=== PATIENT | male | born 1960 | race Caucasian/White ===

== ENCOUNTER 2020-05-27 13:21 | Inpatient (IN) ==
[2020-05-27] MEDS ORDERED: methylPREDNISolone SOD SUCC 125 MG/2 ML VIAL IV ONE (13:47)
[2020-05-27] MEDS ORDERED: 0.9 % SODIUM CHLORIDE 1,000 ML IV ONE (13:47)
[2020-05-27] MEDS ORDERED: ALBUTEROL SULFATE 200 PUFF INHALER INH ONE (13:47)
[2020-05-27] MEDS ORDERED: ONDANSETRON 4 MG/2 ML VIAL IV ONE (13:47)
[2020-05-27] MEDS ORDERED: ACETAMINOPHEN 325 MG TABLET PO ONE (13:47)
[2020-05-27] MEDS ORDERED: BENZONATATE 100 MG CAPSULE PO ONE (13:47)
--- NOTE | 2020-05-27 13:55 | Emergency Department Note ---
HPI General Chief complaint: Cold/Flu Symptoms Stated complaint: SOB, Weakness, General Malaise Time Seen by Provider: 05/27/20 13:26 Source: patient Mode of arrival: ambulatory Limitations: no limitations History of Present Illness HPI Narrative: Narrative: 60-year-old male patient, who is known COVID positive, presents emergency department chief complaint of worsening productive cough, generalized malaise, nausea, diarrhea, and fevers. Patient's is known COVID positive as well and he has been taking care of her. He was recently diagnosed with COVID on 05/21 in the [facility]. He was treated with course of azithromycin and sent home to recuperate. Unfortunately he has developed the prior mentioned worsening symptoms. Patient does have considerable comorbidities of CHF, type 2 diabetes, obesity, and hypertension which are all related to poor outcomes with someone who is suffering from COVID. Patient admits to scant amount of hemoptysis with coughing over the last 2 days. Patient denies overt retrosternal chest pain or palpitations. However, patient did mention pain extending between his shoulder blades. This worsens with deep breathing or cough. He denies any worsening lower extremity edema. He denies any orthopnea. ROS: Admits to systemic illness, fever, sweats, chills. Denies abdominal pain, nausea, vomiting, or diarrhea. Denies dysuria, hematuria, urinary frequency, or urinary urgency. Related Data Home Medications Medication Instructions Recorded Confirmed losartan 100 mg tablet 100 mg PO QDAY 10/27/16 05/21/20 Previous Rx's Medication Instructions Recorded fluticasone propionate 50 1 spray INTRANASAL QDAY #16 g 02/27/20 mcg/actuation nasal spray,suspension metformin 500 mg tablet 1,000 mg PO BID #180 tab 02/27/20 amlodipine 10 mg tablet 10 mg PO HS #90 tab 03/04/20 carvedilol 25 mg tablet 12.5 mg PO BID #90 tab 03/04/20 potassium chloride 20 mEq 20 meq PO QDAY #90 tab 03/05/20 tablet,extended release blood sugar diagnostic #100 each 03/30/20 furosemide 40 mg tablet 40 mg PO QDAY #90 tab 04/06/20 insulin glargine 100 unit/mL (3 40 unit SUB-Q QDAY #15 ml 04/29/20 mL) subcutaneous pen albuterol sulfate 90 mcg/actuation 2 puff INHALATION .q4-6h PRN #8.5 g 05/21/20 aerosol inhaler azithromycin 250 mg tablet See Rx Instructions PO Q24H #6 tab 05/21/20 BD Ultra-Fine Aliya Pen Needle 32 See Rx Instructions .ROUTE 05/25/20 gauge x 5/32" .COMPLEX #90 each NS fluticasone 100 mcg-salmeterol 50 1 inh INHALATION BID #3 device 05/25/20 mcg/dose blistr powdr for inhalation blood sugar diagnostic See Rx Instructions .ROUTE 05/26/20 .COMPLEX #180 strip lancets #180 each 05/26/20 Allergies Allergy/AdvReac Type Severity Reaction Status Date / Time aspirin AdvReac Mild Nausea and Verified 05/21/20 09:27 vomiting, swelling Review of Systems ROS ROS Narrative: Narrative: PFSH Narrative Patient History Narrative: Narrative: Medical/Surgical/Family History All Active Problems Pneumonia due to COVID-19 virus (Acute) Hypoxia (Acute) Viral syndrome (Acute) Chest congestion (Acute) Right knee pain (Acute) Bicipital tendinitis (Chronic) Umbilical hernia (Acute) Umbilical hernia, incarcerated (Acute) CHF (congestive heart failure) (Chronic) Type 2 diabetes mellitus (Chronic) Pain in thoracic spine (Chronic) Chest pain (Chronic) Heart murmur (Chronic) Shortness of breath (Chronic) Fatigue (Chronic) Abnormal glucose (Chronic) Ascending aortic aneurysm (Chronic) Healthcare maintenance (Chronic) Prediabetes (Chronic) Dilated idiopathic cardiomyopathy (Chronic) History of tobacco use (Chronic) Liver enzyme elevation (Chronic) Hypertension, essential (Chronic ~1989) Heart trouble (Chronic ~2011) Arthritis (Chronic ~2011) Medical History Abnormal glucose (Chronic) Arthritis (Chronic ~2011) Ascending aortic aneurysm (Chronic) Chest congestion (Acute) Chest pain (Chronic) CHF (congestive heart failure) (Chronic) Fatigue (Chronic) Heart murmur (Chronic) Heart trouble (Chronic ~2011) History of tobacco use (Chronic) Hypertension, essential (Chronic ~1989) Liver enzyme elevation (Chronic) Pain in thoracic spine (Chronic) Shortness of breath (Chronic) Type 2 diabetes mellitus (Chronic) Viral syndrome (Acute) Surgical History H/O colonoscopy (Chronic ~1998) Dr. Wilder [place] ([place]) H/O knee surgery (Chronic ~2009) History of appendectomy (Chronic) History of umbilical hernia repair (Acute) 12/07/2016-with mesh Family History Mother Hypertension Father Hypertension Social History Smoking Status: Former smoker Alcohol Intake Frequency: a few times a week Substance Use: former substance user and marijuana Exam Narrative Narrative: Narrative: General Limitations: no limitations General appearance: Present other (Well-developed, well-nourished, morbidly obese, and acutely ill-appearing 60-year-old male patient sitting upright on the emergency room gurney in no acute respiratory distress. He is not tachypneic. He is febrile at 100.2. He is normotensive. No tachycardia.) Head Head: Present normocephalic Eye Eye: Present normal appearance, PERRL and EOMI; Absent scleral icterus and conjunctival injection ENT ENT: Present normal oropharynx and mucous membranes moist Neck Neck: Present trachea midline; Absent lymphadenopathy Chest Chest: Present symmetric chest wall rise Respiratory Respiratory: Present prolonged expiratory phase and decreased breath sounds (Coarse breath sounds heard throughout the chest. No wheezing, rhonchi, or rales.); Absent normal lung sounds bilaterally, respiratory distress, rales/crackles, wheezes, stridor and accessory muscle use Cardiovascular Cardiovascular: Present regular rate and normal rhythm; Absent systolic murmur and diastolic murmur Adbominal Abdominal: Present soft; Absent distention, tenderness, guarding, rebound, rigidity, organomegaly and mass Extremities Extremities: Present full ROM and pedal edema (Trace nonpitting edema through both ankles bilateral.); Absent normal inspection (Bilateral lower extremity bronzing and dry scaly skin noted.), tenderness, normal capillary refill (Less than 3 seconds.) and calf tenderness Back Back: Present normal inspection and full ROM Neurological Neurological: Present alert and oriented X3 Psychiatric Psychiatric: Present normal affect and normal mood Skin Skin: Present warm (WNL), dry and normal color Course Course Course Narrative: Patient has known COVID with worsening symptoms. At this time he is febrile but his other vital signs are within normal range. We are going to get a chest x-ray, EKG, and screening blood work started. Patient was given albuterol 2 puffs via inhaler to help with the shortness of breath. He was given 975 mg of acetaminophen for his fever. Were going to treat his cough with benzonatate 200 mg p.o. Patient was also given Solu-Medrol 62.5 mg IV. Patient somewhat nauseated and was given Zofran 4 mg IVP. He is also going to be provided normal saline 1000 mL as a bolus. Reevaluation(s) Reevaluation #1: Review his diagnostic show the following: CBC within normal limits. Lactic acid 1.6. CMP chloride 94, glucose 178, AST 41, ALT 54, all others within normal limits. Troponin less than 0.01. proBNP less than 50. Procalcitonin is elevated 0.10. Portable chest x-ray showing vague infiltrates developing the perihilar regions. Radiologist mentions borderline CHF. Radiologist also as patient clinically has CHF and they would consider diuretic trial follow-up with a 2 view upright chest x-ray in radiology for better evaluation. ABG reviewed showing pH 7.4, CO2 46, O2 57, bicarb 28.5. Upon reevaluation patient is lying on the emergency room gurney somewhat diaphoretic. A trial without oxygen was made unfortunately patient's SPO2 decreased abruptly to 85% on room air. She was quickly restarted on nasal cannula oxygen at 4 L/min. His SPO2 then increased to 91%. After reviewing the data I discussed these findings with my collaborating physician (Dr. Gonzalez). Patient has known COVID positive with suspected developing pneumonia in his chest. He is hypoxic and requiring oxygen. Dr. Gonzalez is recommending I speak to the hospitalist about admission. Knowing this, I reached out to our hos pitalist (Dr. Vásquez) to discuss the case with him. Time: 16:16 Reevaluation #2: At this time the hospitalist has accepted the patient for admission. All further treatment decisions, modalities, and ultimate patient disposition to be carried out by the hospitalist. Time: 17:57 Vital Signs Vital signs: Vital Signs Temperature 100.2 F H 05/27/20 13:22 Pulse Rate 95 H 05/27/20 13:22 Respiratory Rate 20 05/27/20 13:22 Blood Pressure 127/95 05/27/20 13:22 Pulse Oximetry (%) 90 05/27/20 13:22 Temperature 100.2 F H 05/27/20 18:49 Pulse Rate 82 05/27/20 18:49 Respiratory Rate 22 05/27/20 18:49 Blood Pressure 112/78 05/27/20 18:49 Pulse Oximetry (%) 91 05/27/20 18:49 MDM MDM Narrative Medical decision making narrative: Narrative: Lab Data Lab results reviewed: Yes I reviewed the patient's lab results. Result diagrams: 05/27/20 14:08 05/27/20 14:08 Labs: Lab Results 05/27/20 05/27/20 05/27/20 Range/Units 14:08 14:08 14:08 WBC 5.4 (4.50-11.00) K/mcL RBC 5.65 (4.63-6.08) M/mcL Hgb 17.2 (13.7-17.5) g/dL Hct 50.3 (40.1-51.0) % MCV 89.0 (80.0-100.0) fL MCH 30.4 (26.0-34.0) pg MCHC 34.2 (31.0-36.0) g/dL RDW 13.8 (11.5-14.5) % Plt Count 164 (140-440) K/mcL MPV 10.5 H (7.4-10.4) fL Gran % 55.4 (38.0-78.0) % Lymph % (Auto) 33.6 (15.5-49.0) % Sampson % (Auto) 10.4 (1.0-12.0) % Eos % (Auto) 0.2 (0.0-7.0) % Baso % (Auto) 0.4 (0.0-2.0) % Gran # 2.98 (1.80-8.00) K/mcL Lymph # (Auto) 1.81 (1.50-4.80) K/mcL Sampson # (Auto) 0.56 (0.10-0.90) K/mcL Eos # (Auto) 0.01 (0.00-0.70) K/mcL Baso # (Auto) 0.02 (0.00-0.30) K/mcL VBG Lactic Acid 1.6 (0.5-2.0) mmol/L Sodium 135 (133-145) mmol/L Potassium 4.2 (3.3-5.1) mmol/L Chloride 94 L (96-108) mmol/L Carbon Dioxide 26 (22-30) mmol/L Anion Gap 15.0 (8-16) BUN 13 (6-20) mg/dl Creatinine 0.8 (0.7-1.2) mg/dl GFR Calculation 97 Glucose 178 H (70-105) mg/dL Calcium 8.8 (8.6-10.4) mg/dl Total Bilirubin 0.8 (0.0-1.0) mg/dL AST 41 H (0-37) U/l ALT 54 H (0-40) U/l Alkaline Phosphatase 59 (39-117) U/L Troponin T (0-0.03) ng/ml NT-Pro-B Natriuret Pep < 50.0 (0-125) pg/ml Total Protein 6.8 (5.9-8.4) gm/dL Albumin 3.5 (3.2-5.2) gm/dL Globulin 3.3 (2.2-3.7) gm/dL Albumin/Globulin Ratio 1.1 (1.0-2.3) Procalcitonin (<0.10) ng/mL 05/27/20 05/27/20 Range/Units 14:08 14:08 WBC (4.50-11.00) K/mcL RBC (4.63-6.08) M/mcL Hgb (13.7-17.5) g/dL Hct (40.1-51.0) % MCV (80.0-100.0) fL MCH (26.0-34.0) pg MCHC (31.0-36.0) g/dL RDW (11.5-14.5) % Plt Count (140-440) K/mcL MPV (7.4-10.4) fL Gran % (38.0-78.0) % Lymph % (Auto) (15.5-49.0) % Sampson % (Auto) (1.0-12.0) % Eos % (Auto) (0.0-7.0) % Baso % (Auto) (0.0-2.0) % Gran # (1.80-8.00) K/mcL Lymph # (Auto) (1.50-4.80) K/mcL Sampson # (Auto) (0.10-0.90) K/mcL Eos # (Auto) (0.00-0.70) K/mcL Baso # (Auto) (0.00-0.30) K/mcL VBG Lactic Acid (0.5-2.0) mmol/L Sodium (133-145) mmol/L Potassium (3.3-5.1) mmol/L Chloride (96-108) mmol/L Carbon Dioxide (22-30) mmol/L Anion Gap (8-16) BUN (6-20) mg/dl Creatinine (0.7-1.2) mg/dl GFR Calculation Glucose (70-105) mg/dL Calcium (8.6-10.4) mg/dl Total Bilirubin (0.0-1.0) mg/dL AST (0-37) U/l ALT (0-40) U/l Alkaline Phosphatase (39-117) U/L Troponin T < 0.01 (0-0.03) ng/ml NT-Pro-B Natriuret Pep (0-125) pg/ml Total Protein (5.9-8.4) gm/dL Albumin (3.2-5.2) gm/dL Globulin (2.2-3.7) gm/dL Albumin/Globulin Ratio (1.0-2.3) Procalcitonin 0.11 H (<0.10) ng/mL Radiology Data Radiology results reviewed: Yes I reviewed the patient's radiology results. Radiology results narrative: Ordering Physician: Stewart Hanson PA-C Date of Service: 05/27/20 Procedure(s): XR chest 1V portable Accession Number(s): [id number] CLINICAL INFORMATION: Worsening SOB, fatigue. Known COVID +. Hx of CHF. COMPARISON: 06/11/2019 FINDINGS: Borderline cardiomegaly is unchanged mediastinum unremarkable. Pulmonary vessels mild redistribution no edema. There may be vague infiltrates developing in the perihilar regions. No effusions IMPRESSION: Vague infiltrates developing in the perihilar regions. Borderline CHF. If patient clinically has CHF, consider diuretic trial and follow-up two-view upright chest x-ray department for better evaluation Interpreted and Authenticated by: Narinder Mora 05/27/20 EKG Data EKG #1: EKG results narrative: Twelve-lead EKG obtained showing sinus rhythm at a rate of 89 bpm unifocal PVCs noted. First-degree AV block noted. No obvious ST segment changes. This is considerably different than EKG obtained on 12/07 showing the patient within sinus rhythm and first-degree AV block. Discharge Plan Patient/Caregiver Discharge Instructions Pt seen by PHYSICIAN CODING SPECIALIST/PA only: Yes Clinical Impression: Pneumonia due to COVID-19 virus, Hypoxia Patient Disposition: Xfer As Inpt ([facility]) Condition: Fair Discharge Date/Time: 05/27/20 18:45
[2020-05-27 14:54] LABS: Basophils # (Auto) 0.02 K/mcL (0.00-0.30); Basophils % (Auto) 0.4 % (0.0-2.0); Eosinophils # (Auto) 0.01 K/mcL (0.00-0.70); Eosinophils % (Auto) 0.2 % (0.0-7.0); Granulocytes % (Auto) 55.4 % (38.0-78.0); Hematocrit 50.3 % (40.1-51.0); Hemoglobin 17.2 g/dL (13.7-17.5); Lymphocytes # (Auto) 1.81 K/mcL (1.50-4.80); Lymphocytes % (Auto) 33.6 % (15.5-49.0); Mean Corpuscular HGB Conc 34.2 g/dL (31.0-36.0); Mean Platelet Volume 10.5 fL (7.4-10.4); Monocytes # (Auto) 0.56 K/mcL (0.10-0.90); Monocytes % (Auto) 10.4 % (1.0-12.0); Platelet Count 164 K/mcL (140-440); RBC 5.65 M/mcL (4.63-6.08); Red Cell Distribution Width 13.8 % (11.5-14.5); WBC 5.4 K/mcL (4.50-11.00)
--- NOTE | 2020-05-27 15:13 | XRay Report ---
CLINICAL INFORMATION: Worsening SOB, fatigue. Known COVID +. Hx of CHF. COMPARISON: 06/11/2019 FINDINGS: Borderline cardiomegaly is unchanged mediastinum unremarkable. Pulmonary vessels mild redistribution no edema. There may be vague infiltrates developing in the perihilar regions. No effusions IMPRESSION: Vague infiltrates developing in the perihilar regions. Borderline CHF. If patient clinically has CHF, consider diuretic trial and follow-up two-view upright chest x-ray department for better evaluation Interpreted and Authenticated by: Narinder Mora 05/27/20
[2020-05-27 15:16] LABS: proBNP < 50.0 pg/ml (0-125)
[2020-05-27 15:27] LABS: ALT/SGPT 54 U/l (0-40); AST/SGOT 41 U/l (0-37); Albumin 3.5 gm/dL (3.2-5.2); Albumin/Globulin Ratio 1.1 (1.0-2.3); Alkaline Phosphatase 59 U/L (39-117); Bilirubin,Total 0.8 mg/dL (0.0-1.0); Blood Urea Nitrogen 13 mg/dl (6-20); Calcium 8.8 mg/dl (8.6-10.4); Carbon Dioxide 26 mmol/L (22-30); Globulin 3.3 gm/dL (2.2-3.7); Glomerular Filtration Rate 97; Glucose 178 mg/dL (70-105)
[2020-05-27 15:28] LABS: Chloride 94 mmol/L (96-108)
[2020-05-27] MEDS ORDERED: CARVEDILOL 12.5 MG TABLET PO SCH (17:30)
[2020-05-27] MEDS ORDERED: ONDANSETRON 4 MG/2 ML VIAL IV PRN (18:17)
[2020-05-27] MEDS ORDERED: ALBUTEROL SULFATE 200 PUFF INHALER INH PRN ×2 (18:23→19:07)
[2020-05-27] MEDS ORDERED: DEXTROSE 31 GM ORAL.SUSP PO PRN ×2 (18:27→19:07)
[2020-05-27] MEDS ORDERED: DEXTROSE 50% 50 ML VIAL IV PRN ×2 (18:27→19:07)
[2020-05-27] MEDS ORDERED: AZITHROMYCIN 500 MG in DEXTROSE 5% IN WATER 250 ML IV SCH (18:30)
--- NOTE | 2020-05-27 18:47 | Internal Med History&Physical ---
HPI History of Present Illness Patient information: Note initiated : 05/27/20 at 6:47 pm Service Date, if different from initiated Date: [] Patient: Steve Montero a 60 y/o M admitted on 05/27/20 for SOB, Weakness, General Malaise. Chief Complaint: [] History of present illness: Mr. Montero is a 60 year old M with a past medical history of CHF, type 2 diabetes, high blood pressure, and morbid obesity who presented to the ER due to worsening shortness of breath, generalized weakness, diarrhea and nausea. Patient was diagnosed with positive COVID-19. Mr. Montero has been taking care of his . His COVID-19 test was positive on May 21, for which he was treated with azithromycin. He completed a course of azithromycin. he also complains of cough with a small amount of sputum. he noticed streaks of blood in his sputum at times. He also reported that he has pain from the area between shoulder blades. He feels more pain if he takes deep breath. In the ER, he was found to have desaturation, chest x-ray showed perihilar infiltrate. He was given Solu-Medrol 62.5 mg IV x 1 and 1 L normal saline. When I saw this patient in the ER, other than the symptoms mentioned above, he denied headache, dizziness, vomiting, abdominal pain, or chest pain. Denied recent travel. Review of Systems All systems: reviewed and no additional remarkable complaints except as stated PFSH PFSH All Active Problems Pneumonia due to COVID-19 virus (Acute) Hypoxia (Acute) Viral syndrome (Acute) Chest congestion (Acute) Right knee pain (Acute) Bicipital tendinitis (Chronic) Umbilical hernia (Acute) Umbilical hernia, incarcerated (Acute) CHF (congestive heart failure) (Chronic) Type 2 diabetes mellitus (Chronic) Pain in thoracic spine (Chronic) Chest pain (Chronic) Heart murmur (Chronic) Shortness of breath (Chronic) Fatigue (Chronic) Abnormal glucose (Chronic) Ascending aortic aneurysm (Chronic) Healthcare maintenance (Chronic) Prediabetes (Chronic) Dilated idiopathic cardiomyopathy (Chronic) History of tobacco use (Chronic) Liver enzyme elevation (Chronic) Hypertension, essential (Chronic ~1989) Heart trouble (Chronic ~2011) Arthritis (Chronic ~2011) Medical History Abnormal glucose (Chronic) Arthritis (Chronic ~2011) Ascending aortic aneurysm (Chronic) Chest congestion (Acute) Chest pain (Chronic) CHF (congestive heart failure) (Chronic) Fatigue (Chronic) Heart murmur (Chronic) Heart trouble (Chronic ~2011) History of tobacco use (Chronic) Hypertension, essential (Chronic ~1989) Liver enzyme elevation (Chronic) Pain in thoracic spine (Chronic) Shortness of breath (Chronic) Type 2 diabetes mellitus (Chronic) Viral syndrome (Acute) Surgical History H/O colonoscopy (Chronic ~1998) Dr. Wilder [place] ([place]) H/O knee surgery (Chronic ~2009) History of appendectomy (Chronic) History of umbilical hernia repair (Acute) 12/07/2016-with mesh Family History Mother Hypertension Father Hypertension Social History marital status: smoking status: Former smoker pack-years: 25 alcohol intake frequency: a few times a week substance use type: former substance user and marijuana MEDS/ALLERGIES Home Medications and Allergies Home Medications Medication Instructions Recorded Confirmed Type losartan 100 mg tablet 100 mg PO QDAY 10/27/16 05/27/20 History fluticasone propionate 50 1 spray INTRANASAL QDAY #16 g 02/27/20 05/27/20 Rx mcg/actuation nasal spray,suspension metformin 500 mg tablet 1,000 mg PO BID #180 tab 02/27/20 05/27/20 Rx amlodipine 10 mg tablet 10 mg PO HS #90 tab 03/04/20 05/27/20 Rx carvedilol 25 mg tablet 12.5 mg PO BID #90 tab 03/04/20 05/27/20 Rx potassium chloride 20 mEq 20 meq PO QDAY #90 tab 03/05/20 05/27/20 Rx tablet,extended release blood sugar diagnostic #100 each 03/30/20 05/21/20 Rx furosemide 40 mg tablet 40 mg PO QDAY #90 tab 04/06/20 05/27/20 Rx insulin glargine 100 unit/mL (3 40 unit SUB-Q QDAY #15 ml 04/29/20 05/27/20 Rx mL) subcutaneous pen albuterol sulfate 90 mcg/actuation 2 puff INHALATION .q4-6h PRN #8.5 g 05/21/20 05/27/20 Rx aerosol inhaler azithromycin 250 mg tablet See Rx Instructions PO Q24H #6 tab 05/21/20 05/27/20 Rx BD Ultra-Fine Aliya Pen Needle 32 See Rx Instructions .ROUTE 05/25/20 05/27/20 Rx gauge x 5/32" .COMPLEX #90 each NS fluticasone 100 mcg-salmeterol 50 1 inh INHALATION BID #3 device 05/25/20 05/27/20 Rx mcg/dose blistr powdr for inhalation blood sugar diagnostic See Rx Instructions .ROUTE 05/26/20 05/27/20 Rx .COMPLEX #180 strip lancets #180 each 05/26/20 Rx Allergies Allergy/AdvReac Type Severity Reaction Status Date / Time aspirin AdvReac Mild Nausea and Verified 05/21/20 09:27 vomiting, swelling EXAM Constitutional Vitals: Temp Pulse Resp BP Pulse Ox 100.2 F H 82 22 112/78 91 05/27/20 14:16 05/27/20 17:01 05/27/20 17:16 05/27/20 17:16 05/27/20 17:01 Additional findings Additional findings: General - No acute distress Eyes - PERRLA, EOM intact ENT no rhinorrhea, no noticeable or palpable swelling, no redness or rash around throat or on face Neck supple, no JVD, no thyromegaly Respiratory: Lungs -diminished breathing sounds, no wheezing or crackles. Cardiovascular - RRR no m/r/g, GI - Normal bowel sounds, no distended, soft. Extremeties - No edema, cyanosis or clubbing Hemo/lymphatic/immune no lymphadenopathy Neurological Alert and oriented x 3, no focal neurological deficits. Psychiatry flat affect DATA Data Completed and Pending Labs: Labs from last 24 hours 05/27/20 05/27/20 05/27/20 14:08 14:08 14:08 WBC RBC Hgb Hct MCV MCH MCHC RDW Plt Count MPV Gran % Lymph % (Auto) Chambers % (Auto) Eos % (Auto) Baso % (Auto) Gran # Lymph # (Auto) Chambers # (Auto) Eos # (Auto) Baso # (Auto) VBG Lactic Acid 1.6 Sodium Potassium Chloride Carbon Dioxide Anion Gap BUN Creatinine GFR Calculation Glucose Calcium Total Bilirubin AST ALT Alkaline Phosphatase Troponin T < 0.01 NT-Pro-B Natriuret Pep Total Protein Albumin Globulin Albumin/Globulin Ratio Procalcitonin 0.11 H 05/27/20 05/27/20 14:08 14:08 WBC 5.4 RBC 5.65 Hgb 17.2 Hct 50.3 MCV 89.0 MCH 30.4 MCHC 34.2 RDW 13.8 Plt Count 164 MPV 10.5 H Gran % 55.4 Lymph % (Auto) 33.6 Chambers % (Auto) 10.4 Eos % (Auto) 0.2 Baso % (Auto) 0.4 Gran # 2.98 Lymph # (Auto) 1.81 Chambers # (Auto) 0.56 Eos # (Auto) 0.01 Baso # (Auto) 0.02 VBG Lactic Acid Sodium 135 Potassium 4.2 Chloride 94 L Carbon Dioxide 26 Anion Gap 15.0 BUN 13 Creatinine 0.8 GFR Calculation 97 Glucose 178 H Calcium 8.8 Total Bilirubin 0.8 AST 41 H ALT 54 H Alkaline Phosphatase 59 Troponin T NT-Pro-B Natriuret Pep < 50.0 Total Protein 6.8 Albumin 3.5 Globulin 3.3 Albumin/Globulin Ratio 1.1 Procalcitonin A/P Narrative A/P Narrative: 1. Acute hypoxic respiratory failure Pulse ox Oxygen therapy to keep saturation greater than 92% 2. Pneumonia, covid 19 positive small amount of sputum and hemoptysis Chest x-ray showed Vague infiltrates developing in the perihilar regions. CT chest MRSA screen Respiratory panel negative in the ER Completed a course of azithromycin recently Levaquin Dexamethasone Remdesivir 3. CHF with dilated idiopathic cardiomyopathy Patient fluid status seems to be fine BNP 50 Continue home Lasix 40 mg daily Intake and output Daily weight Check magnesium 4. DM type 2 Diabetic diet Continue home Lantus Metformin is on hold Insulin sliding scale 5. HTN Not high Continue home carvedilol 12.5 mg twice daily and losartan 100 mg daily. Amlodipine 10 mg daily is on hold Monitor blood pressure 6. Elevation of liver enzymes Repeat liver enzyme in the morning 7. Hx of ascending aortic aneurysm Tightly control blood pressure 8. Morbid obesity, BMI 47.3 Follow with PCP 9. DVT and GI prophylaxis: Pantoprazole and Lovenox 10. CODE STATUS: Repairer Evaporator Spent With Patient Time: Total time spent is greater than 50% in coordination of care (as documented) at patient's floor/unit and/or counseling patient:
[2020-05-27] MEDS ORDERED: NAPROXEN 250 MG TABLET PO PRN ×2 (18:48→19:07)
[2020-05-27] MEDS ORDERED: guaiFENesin W/DM (PP) 5 ML ORAL.SOL (#118) PO PRN (18:53)
[2020-05-27] MEDS ORDERED: LEVOFLOXACIN 750 MG/150 ML BAG IV SCH (19:00)
[2020-05-27] MEDS: FLUTICASONE/SALMETEROL 50/100 INHALER #14 INH SCH (19:20)
[2020-05-27] MEDS ORDERED: guaiFENesin/DEXTROMETHORPHAN ORAL SOL PO PRN (19:31)
[2020-05-27] MEDS ORDERED: REMDESIVIR 200 MG in 0.9 % SODIUM CHLORIDE 250 ML IV ONE (19:45)
[2020-05-27] MEDS ORDERED: FLUTICASONE/SALMETEROL 50/100 INHALER #14 INH SCH (21:00)
[2020-05-27] MEDS ORDERED: CARVEDILOL 12.5 MG PO SCH (21:00)
[2020-05-27] MEDS ORDERED: DOCUSATE SODIUM 100 MG CAPSULE PO SCH (21:00)
[2020-05-27] MEDS ORDERED: INSULIN LISPRO 1 UNIT/0.01 ML UNIT SQ SCH (21:00)
[2020-05-27] MEDS: amLODIPine 5 MG TABLET PO SCH ×2 (21:39→22:10)
[2020-05-27] MEDS: DOCUSATE SODIUM 100 MG CAPSULE PO SCH (21:39)
[2020-05-27] MEDS ORDERED: 0.9 % SODIUM CHLORIDE 10 ML SYRINGE IV SCH (22:00)
[2020-05-27] MEDS: PANTOPRAZOLE 40 MG TABLET PO SCH (22:09)
[2020-05-27] MEDS: INSULIN LISPRO 1 UNIT/0.01 ML UNIT SQ SCH (22:10)
[2020-05-27] MEDS: LEVOFLOXACIN 750 MG/150 ML BAG IV SCH (22:14)
[2020-05-27] MEDS: 0.9 % SODIUM CHLORIDE 10 ML SYRINGE IV SCH (22:16)
[2020-05-28] MEDS: METOCLOPRAMIDE 10 MG/2 ML VIAL IV SCH ×5 (00:01→23:16)
--- NOTE | 2020-05-28 03:25 | Cat Scan Report ---
CLINICAL INFORMATION: Hemoptysis. Pneumonia COMPARISON: Chest x-ray 05/27/2020 TECHNIQUE: 0.625 mm axial slices were obtained from the lung apices through the bases without intravenous contrast. 2.5 mm Sagittal, coronal and axial reformatted images were processed and reviewed at bone, lung and soft tissue windows. 7 mm axial MIP images were also reconstructed to optimize pulmonary nodule detection.The exam was performed using radiation dose optimization techniques including, but not limited to, automated exposure control, adjustment of the mA and/or kV according to patient size and use of iterative reconstruction technique. FINDINGS: Pulmonary parenchymal windows show moderate patchy groundglass infiltrates throughout both upper, right middle, and lower lobes. The most prominent involvement is the upper lobes. No nodules. Pleural spaces are normal - no effusions. The mediastinal windows show the heart is normal in size and configuration with only very minimal scattered calcific plaque. The thoracic aorta and pulmonary arteries are normal diameter. Esophagus is grossly normal. There is no adenopathy in the mediastinal hilar or axillary regions. The thyroid is unremarkable. Bone windows show mild enlargement of the left C7 foramen transversarium with possible erosion in the adjacent vertebral body. No other osseous abnormality. Images should the superior abdomen are unremarkable. IMPRESSION: 1. Moderate patchy groundglass infiltrates throughout the lungs predominantly upper lobe involvement. This could represent infection including Covid pneumonia or less likely aspiration. Interpreted and Authenticated by: Narinder Mora 05/28/20
[2020-05-28] MEDS: 0.9 % SODIUM CHLORIDE 10 ML SYRINGE IV SCH ×3 (05:34→20:49)
[2020-05-28 06:38] LABS: Basophils # (Auto) 0 K/mcL (0.00-0.30); Basophils % (Auto) 0 % (0.0-2.0); Eosinophils # (Auto) 0.14 K/mcL (0.00-0.70); Eosinophils % (Auto) 2.4 % (0.0-7.0); Granulocytes % (Auto) 68.4 % (38.0-78.0); Hematocrit 47.8 % (40.1-51.0); Hemoglobin 16.1 g/dL (13.7-17.5); Lymphocytes # (Auto) 1.18 K/mcL (1.50-4.80); Lymphocytes % (Auto) 20.4 % (15.5-49.0); Mean Cell Volume 90.4 fL (80.0-100.0); Mean Corpuscular HGB Conc 33.7 g/dL (31.0-36.0); Mean Platelet Volume 10.7 fL (7.4-10.4); Monocytes # (Auto) 0.51 K/mcL (0.10-0.90); Monocytes % (Auto) 8.8 % (1.0-12.0); Platelet Count 184 K/mcL (140-440); RBC 5.29 M/mcL (4.63-6.08); Red Cell Distribution Width 13.7 % (11.5-14.5); WBC 5.8 K/mcL (4.50-11.00)
[2020-05-28 07:04] LABS: ALT/SGPT 53 U/l (0-40); AST/SGOT 34 U/l (0-37); Albumin 3.5 gm/dL (3.2-5.2); Albumin/Globulin Ratio 1.2 (1.0-2.3); Alkaline Phosphatase 54 U/L (39-117); Bilirubin,Total 0.4 mg/dL (0.0-1.0); Blood Urea Nitrogen 16 mg/dl (6-20); Calcium 9.2 mg/dl (8.6-10.4); Carbon Dioxide 27 mmol/L (22-30); Chloride 97 mmol/L (96-108); Glomerular Filtration Rate 97; Glucose 288 mg/dL (70-105); Phosphorous 3.2 mg/dL (2.7-4.5)
[2020-05-28] MEDS: INSULIN LISPRO 1 UNIT/0.01 ML UNIT SQ SCH ×4 (07:25→20:48)
[2020-05-28] MEDS: FUROSEMIDE 40 MG TABLET PO SCH (08:24)
[2020-05-28] MEDS: DEXAMETHASONE 4 MG TABLET PO SCH (08:24)
[2020-05-28] MEDS: LOSARTAN 50 MG TABLET PO SCH (08:24)
[2020-05-28] MEDS: POTASSIUM CHLORIDE 20 MEQ TABLET PO SCH (08:25)
[2020-05-28] MEDS: INSULIN GLARGINE, HUMAN 1 UNIT/0.01 ML SQ SCH (08:25)
[2020-05-28] MEDS: ENOXAPARIN 40 MG/0.4 ML SYRINGE SQ SCH (08:26)
[2020-05-28] MEDS: FLUTICASONE PROPIONATE SPRAY.NAS NS SCH (08:31)
[2020-05-28] MEDS: FLUTICASONE/SALMETEROL 50/100 INHALER #14 INH SCH ×2 (08:31→20:54)
[2020-05-28] MEDS: DOCUSATE SODIUM 100 MG CAPSULE PO SCH ×2 (08:31→20:47)
[2020-05-28] MEDS ORDERED: POTASSIUM CHLORIDE 20 MEQ PO SCH (09:00)
[2020-05-28] MEDS ORDERED: DEXAMETHASONE 4 MG TABLET PO SCH (09:00)
[2020-05-28] MEDS ORDERED: FUROSEMIDE 40 MG TABLET PO SCH (09:00)
[2020-05-28] MEDS ORDERED: NON FORMULARY MEDICATION 1 DOSE MISCELL (Losartan 100 MG) PO SCH (09:00)
[2020-05-28] MEDS ORDERED: NON FORMULARY MEDICATION 1 DOSE MISCELL (Insulin Glargine [Lantus Solostar U-100 Insulin] SUB-Q SCH (09:00)
[2020-05-28] MEDS ORDERED: ENOXAPARIN 40 MG/0.4 ML SYRINGE SQ SCH (09:00)
[2020-05-28] MEDS ORDERED: FLUTICASONE PROPIONATE SPRAY.NAS NS SCH (09:00)
[2020-05-28] MEDS: REMDESIVIR 100 MG in 0.9 % SODIUM CHLORIDE 250 ML IV SCH (11:36)
--- NOTE | 2020-05-28 14:23 | Internal Med Progress Note ---
SUBJECTIVE Subjective Patient information: Note initiated : 05/28/20 at 2:22 pm Service Date, if different from initiated Date: [] Patient: Steve Montero a 60 y/o M admitted on 05/27/20 for SOB, Weakness, General Malaise. Chief Complaint: [] Mr. Montero is a 60 year old M with a past medical history of CHF, type 2 diabetes, high blood pressure, and morbid obesity who presented to the ER due to worse gilberto shortness of breath, generalized weakness, diarrhea and nausea. Patient was diagnosed with positive COVID-19. Mr. Montero has been taking care of his . His COVID-19 test was positive on May 21, for which he was treated with azithromycin. He completed a course of azithromycin. he also complains of cough with a small amount of sputum. he noticed streaks of blood in his sputum at times. He also reported that he has pain from the area between shoulder blades. He feels more pain if he takes deep breath. In the ER, he was found to have desaturation, chest x-ray showed perihilar infiltrate. He was given Solu-Medrol 62.5 mg IV x 1 and 1 L normal saline. When I saw this patient in the ER, other than the symptoms mentioned above, he denied headache, dizziness, vomiting, abdominal pain, or chest pain. Denied recent travel. 05/28 Patient still complains of mild shortness of breath and sweating. Otherwise he denies fever, chills, nausea or vomiting. He is on 4 L AST normalized, ALT went down to 53. He is now on dexamethasone, remdesivir and Levaquin. Review of Systems All systems: reviewed and no additional remarkable complaints except as stated Constitutional Vitals: Vital Signs Temp Pulse Resp BP Pulse Ox 98.0 F 71 20 138/84 93 05/28/20 11:58 05/28/20 11:58 05/28/20 11:58 05/28/20 11:58 05/28/20 11:58 Period Temp Pulse Resp BP Sys/Leong Pulse Ox Last 24 Hr 98.0 F-100.2 F 55-83 17-24 94-142/64-96 85-93 Intake and Output 05/28/20 05/28/20 05/28/20 05:59 13:59 21:59 Intake Total 240 Balance 240 Intake & Output: Intake & Output 05/28/20 05/28/20 05/28/20 05:59 13:59 21:59 Intake Total 240 Balance 240 Intake: Oral 240 Other: # Voids 1 Additional findings Additional findings: General - No acute distress Eyes - PERRLA, EOM intact ENT no rhinorrhea, no noticeable or palpable swelling, no redness or rash around throat or on face Neck supple, no JVD, no thyromegaly Respiratory: Lungs -diminished breathing sounds, no wheezing or crackles. Cardiovascular - RRR no m/r/g, GI - Normal bowel sounds, no distended, soft. Extremeties - No edema, cyanosis or clubbing Hemo/lymphatic/immune no lymphadenopathy Neurological Alert and oriented x 3, no focal neurological deficits. Psychiatry flat affect OBJ DATA Labs CBC & Chem 7: 05/28/20 05:05 05/28/20 05:05 Labs: Abnormal Lab Results 05/28/20 05/28/20 05/27/20 05:05 05:05 14:08 MPV 10.7 H Lymph # (Auto) 1.18 L Chloride Glucose 288 H AST ALT 53 H Procalcitonin 0.11 H 05/27/20 05/27/20 14:08 14:08 MPV 10.5 H Lymph # (Auto) Chloride 94 L Glucose 178 H AST 41 H ALT 54 H Procalcitonin Meds: Medications Albuterol Sulfate (Ventolin) 2 puff INH Q4-6HP PRN PRN Reason: cough, shortness of breath, wh Amlodipine Besylate (Norvasc) 5 mg PO HS [facility] Dexamethasone (Decadron) 6 mg PO DAILY [facility] Last Admin: 05/28/20 08:24 Dose: 6 mg Documented by: Dextrose (Dextrose 50%) 0 ml IV UD PRN PRN Reason: Hypoglycemia Diagnostic Test (Pha) (Accu-Chek) 1 each FS ACHS [facility] Last Admin: 05/28/20 11:36 Dose: 1 each Documented by: Docusate Sodium (Colace) 100 mg PO BID [facility] Last Admin: 05/28/20 08:31 Dose: Not Given Documented by: Enoxaparin Sodium (Lovenox) 40 mg SQ DAILY [facility] Last Admin: 05/28/20 08:26 Dose: 40 mg Documented by: Fluticasone Propionate (Flonase) 1 spray NS QDAY [facility] Last Admin: 05/28/20 08:31 Dose: Not Given Documented by: Furosemide (Lasix) 40 mg PO QDAY [facility] Last Admin: 05/28/20 08:24 Dose: 40 mg Documented by: Glucose (Insta-Glucose) 15 gm PO PRN PRN PRN Reason: Hypoglycemia Guaifenesin (Robitussin Dm) 5 ml PO Q8HP PRN PRN Reason: Cough Levofloxacin (Levaquin) 750 mg in 150 mls @ 100 mls/hr IV Q24H [facility] Last Admin: 05/27/20 22:14 Dose: 100 mls/hr Documented by: REMDESIVIR 100 mg/ Sodium (Chloride) 250 mls @ 250 mls/hr IV Q24H [facility] Stop: 05/31/20 11:59 Last Admin: 05/28/20 11:36 Dose: 250 mls/hr Documented by: Insulin Glargine (Lantus) 40 unit SQ QDAY [facility] Last Admin: 05/28/20 08:25 Dose: 40 units Documented by: Insulin Human Lispro (Humalog) 0 unit SQ [facility]; Protocol Last Admin: 05/28/20 11:48 Dose: 6 units Documented by: Losartan Potassium (Cozaar) 100 mg PO QDAY [facility] Last Admin: 05/28/20 08:24 Dose: 100 mg Documented by: Metoclopramide HCl (Reglan) 5 mg IV Q6 [facility] Last Admin: 05/28/20 11:49 Dose: 5 mg Documented by: Naproxen (Naprosyn) 250 mg PO BIDCC PRN; Protocol PRN Reason: Fever Pantoprazole Sodium (Protonix) 40 mg PO [facility] Last Admin: 05/27/20 22:09 Dose: 40 mg Documented by: Potassium Chloride (Kdur) 20 meq PO QAC [facility] Last Admin: 05/28/20 08:25 Dose: 20 meq Documented by: Fluticasone/Salmeterol (Advair 100-50 Diskus) 1 puff INH BID [facility] Last Admin: 05/28/20 08:31 Dose: Not Given Documented by: Sodium Chloride (Saline Flush) 10 ml IV Q8 [facility] Last Admin: 05/28/20 05:34 Dose: 10 ml Documented by: A/P Narrative A/P Narrative: 1. Acute hypoxic respiratory failure Pulse ox Oxygen therapy to keep saturation greater than 92% 2. Pneumonia, covid 19 positive small amount of sputum and hemoptysis Chest x-ray showed Vague infiltrates developing in the perihilar regions. CT chest - "Moderate patchy groundglass infiltrates throughout the lungs predominantly upper lobe involvement. This could represent infection including Covid pneumonia or less likely aspiration." MRSA screen negative Respiratory panel negative in the ER Completed a course of azithromycin recently Levaquin Dexamethasone Remdesivir 3. CHF with dilated idiopathic cardiomyopathy Patient fluid status seems to be fine BNP 50 Continue home Lasix 40 mg daily Intake and output Daily weight Check magnesium 4. DM type 2 Diabetic diet Continue home Lantus Metformin is on hold Insulin sliding scale 5. HTN Not high Continue home carvedilol 12.5 mg twice daily and losartan 100 mg daily. Amlodipine 10 mg daily is on hold Monitor blood pressure 6. Elevation of liver enzymes Improving Repeat liver enzyme in the morning 7. Hx of ascending aortic aneurysm Tightly control blood pressure 8. Morbid obesity, BMI 47.3 Follow with PCP 9. DVT and GI prophylaxis: Pantoprazole and Lovenox 10. 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
[2020-05-28] MEDS: LEVOFLOXACIN 750 MG/150 ML BAG IV SCH (14:29)
[2020-05-28] MEDS ORDERED: VANCOMYCIN PER PHARMACY IV ONE (18:25)
[2020-05-28] MEDS: PANTOPRAZOLE 40 MG TABLET PO SCH (20:46)
[2020-05-28] MEDS: amLODIPine 5 MG TABLET PO SCH (20:46)
[2020-05-28] MEDS ORDERED: VANCOMYCIN 1,500 MG in 0.9 % SODIUM CHLORIDE 500 ML IV SCH (21:00)
[2020-05-29] MEDS: 0.9 % SODIUM CHLORIDE 10 ML SYRINGE IV SCH ×3 (06:03→20:20)
[2020-05-29] MEDS: METOCLOPRAMIDE 10 MG/2 ML VIAL IV SCH ×2 (06:04→14:32)
[2020-05-29 06:41] LABS: Basophils # (Auto) 0.01 K/mcL (0.00-0.30); Basophils % (Auto) 0.1 % (0.0-2.0); Eosinophils # (Auto) 0 K/mcL (0.00-0.70); Eosinophils % (Auto) 0 % (0.0-7.0); Granulocytes % (Auto) 71.7 % (38.0-78.0); Hematocrit 48.7 % (40.1-51.0); Hemoglobin 15.8 g/dL (13.7-17.5); Lymphocytes # (Auto) 1.43 K/mcL (1.50-4.80); Lymphocytes % (Auto) 19.2 % (15.5-49.0); Mean Cell Volume 92.2 fL (80.0-100.0); Mean Corpuscular HGB Conc 32.4 g/dL (31.0-36.0); Monocytes # (Auto) 0.67 K/mcL (0.10-0.90); Platelet Count 176 K/mcL (140-440); RBC 5.28 M/mcL (4.63-6.08); Red Cell Distribution Width 13.9 % (11.5-14.5); WBC 7.5 K/mcL (4.50-11.00)
[2020-05-29] MEDS ORDERED: VANCOMYCIN PER PHARMACY IV SCH (07:30)
[2020-05-29 07:43] LABS: ALT/SGPT 43 U/l (0-40); AST/SGOT 25 U/l (0-37); Albumin 3.2 gm/dL (3.2-5.2); Albumin/Globulin Ratio 1.1 (1.0-2.3); Alkaline Phosphatase 53 U/L (39-117); Bilirubin,Total 0.4 mg/dL (0.0-1.0); Blood Urea Nitrogen 19 mg/dl (6-20); Calcium 9.2 mg/dl (8.6-10.4); Carbon Dioxide 28 mmol/L (22-30); Chloride 102 mmol/L (96-108); Glomerular Filtration Rate 103; Glucose 184 mg/dL (70-105)
[2020-05-29] MEDS: INSULIN LISPRO 1 UNIT/0.01 ML UNIT SQ SCH ×4 (08:03→20:19)
[2020-05-29] MEDS: DOCUSATE SODIUM 100 MG CAPSULE PO SCH ×2 (08:16→20:19)
[2020-05-29] MEDS: FLUTICASONE/SALMETEROL 50/100 INHALER #14 INH SCH ×2 (08:16→20:18)
[2020-05-29] MEDS: INSULIN GLARGINE, HUMAN 1 UNIT/0.01 ML SQ SCH (10:20)
[2020-05-29] MEDS: POTASSIUM CHLORIDE 20 MEQ TABLET PO SCH (10:20)
[2020-05-29] MEDS: DEXAMETHASONE 4 MG TABLET PO SCH (10:21)
[2020-05-29] MEDS: FUROSEMIDE 40 MG TABLET PO SCH (10:21)
[2020-05-29] MEDS: LOSARTAN 50 MG TABLET PO SCH (10:21)
[2020-05-29] MEDS: FLUTICASONE PROPIONATE SPRAY.NAS NS SCH (10:22)
[2020-05-29] MEDS: ENOXAPARIN 40 MG/0.4 ML SYRINGE SQ SCH (10:22)
[2020-05-29] MEDS: LEVOFLOXACIN 750 MG/150 ML BAG IV SCH ×2 (11:24→14:43)
[2020-05-29] MEDS: REMDESIVIR 100 MG in 0.9 % SODIUM CHLORIDE 250 ML IV SCH (11:33)
--- NOTE | 2020-05-29 15:38 | Internal Med Progress Note ---
SUBJECTIVE Subjective Patient information: Note initiated : 05/29/20 at 3:30 pm Service Date, if different from initiated Date: [] Patient: Steve Montero a 60 y/o M admitted on 05/28/20 for SOB, Weakness, General Malaise. Chief Complaint: [] Interval history: Mr. Montero is a 60 year old M with a past medical history of CHF, type 2 diabetes, high blood pressure, and morbid obesity who presented to the ER due to worsening shortness of breath, generalized weakness, diarrhea and nausea. Patient was diagnosed with positive COVID-19. Mr. Montero has been taking care of his . His COVID-19 test was positive on May 21, for which he was treated with azithromycin. He completed a course of azithromycin. he also complains of cough with a small amount of sputum. he noticed streaks of blood in his sputum at times. He also reported that he has pain from the area between shoulder blades. He feels more pain if he takes deep breath. In the ER, he was found to have desaturation, chest x-ray showed perihilar infiltrate. He was given Solu-Medrol 62.5 mg IV x 1 and 1 L normal saline. When I saw this patient in the ER, other than the symptoms mentioned above, he denied headache, dizziness, vomiting, abdominal pain, or chest pain. Denied r ecent travel. 05/28 Patient still complains of mild shortness of breath and sweating. Otherwise he denies fever, chills, nausea or vomiting. He is on 4 L AST normalized, ALT went down to 53. He is now on dexamethasone, remdesivir and Levaquin. *Blood culture - GPC, COCCI IN CLUSTERS IN ONE BOTTLE OF SET Repeat blood culture Echo Although there is a possibility that it could be due to contamination, I would like to add vanco. Monitor 05/29 Pt is fine. feels better. Denies fever/chills. on 4L His blood culture was positive for GPC yesterday. I initially ordered vanc and echo. Spoke to Lab today - most likely resulted from contamination. No clinical evidence supports bacteremia. I discontinued vanco and echo. closely observe. Pt agreed with the plan. 05/30 Constitutional Vitals: Vital Signs Temp Pulse Resp BP Pulse Ox 97.2 F 56 L 18 138/83 92 05/29/20 11:38 05/29/20 11:38 05/29/20 11:38 05/29/20 11:38 05/29/20 11:38 Period Temp Pulse Resp BP Sys/Leong Pulse Ox Last 24 Hr 97.0 F-98.7 F 52-64 16-20 123-144/83-96 88-95 Intake and Output 05/29/20 05/29/20 05/29/20 05:59 13:59 21:59 Intake Total 400 990 Balance 400 990 Weight 140.432 kg Patient Weight 05/30/20 05:59 Weight 140.432 kg Intake & Output: Intake & Output 05/29/20 05/29/20 05/29/20 05:59 13:59 21:59 Intake Total 400 990 Balance 400 990 Weight 140.432 kg Intake: IV 250 Remdesivir 100 mg In Sodium 250 Chloride 0.9% 250 ml @ 250 mls/ hr IV Q24H [facility] Rx#:[id number] Oral 400 740 Other: Meal Breakfast Percent of Meal Consumed 100% Feeding Ability Independent # Voids 1 Exam: General: Alert, Awake, No acute Distress Eyes/N/T: EOMI, Head/Neck: neck supple, CV: RRR, No murmurs, normal s1/s2 Pulm: Diminished b/l, no wheezing/rales Abd: soft, nontender, +BS x4 Ext: no clubbing/cyanosis/edema Neuro: Alert, no focal deficits, moves all extremities, Skin: warm/dry OBJ DATA Labs CBC & Chem 7: 05/29/20 05:10 05/29/20 05:10 Labs: Abnormal Lab Results 05/29/20 05/29/20 05/28/20 05:10 05:10 05:05 MPV 11.0 H 10.7 H Lymph # (Auto) 1.43 L 1.18 L Chloride Glucose 184 H AST ALT 43 H Procalcitonin 05/28/20 05/27/20 05/27/20 05:05 14:08 14:08 MPV Lymph # (Auto) Chloride 94 L Glucose 288 H 178 H AST 41 H ALT 53 H 54 H Procalcitonin 0.11 H 05/27/20 14:08 MPV 10.5 H Lymph # (Auto) Chloride Glucose AST ALT Procalcitonin Meds: Medications Albuterol Sulfate (Ventolin) 2 puff INH Q4-6HP PRN PRN Reason: cough, shortness of breath, wh Amlodipine Besylate (Norvasc) 5 mg PO HS [facility] Last Admin: 05/28/20 20:46 Dose: 5 mg Documented by: Dexamethasone (Decadron) 6 mg PO DAILY [facility] Last Admin: 05/29/20 10:21 Dose: 6 mg Documented by: Dextrose (Dextrose 50%) 0 ml IV UD PRN PRN Reason: Hypoglycemia Diagnostic Test (Pha) (Accu-Chek) 1 each FS ACHS [facility] Last Admin: 05/29/20 11:35 Dose: 1 each Documented by: Docusate Sodium (Colace) 100 mg PO BID [facility] Last Admin: 05/29/20 08:16 Dose: Not Given Documented by: Enoxaparin Sodium (Lovenox) 40 mg SQ DAILY [facility] Last Admin: 05/29/20 10:22 Dose: 40 mg Documented by: Fluticasone Propionate (Flonase) 1 spray NS QDAY [facility] Last Admin: 05/29/20 10:22 Dose: Not Given Documented by: Furosemide (Lasix) 40 mg PO QDAY [facility] Last Admin: 05/29/20 10:21 Dose: 40 mg Documented by: Glucose (Insta-Glucose) 15 gm PO PRN PRN PRN Reason: Hypoglycemia Guaifenesin (Robitussin Dm) 5 ml PO Q8HP PRN PRN Reason: Cough REMDESIVIR 100 mg/ Sodium (Chloride) 250 mls @ 250 mls/hr IV Q24H [facility] Stop: 05/31/20 11:59 Last Infusion: 05/29/20 12:33 Dose: Infused Documented by: Levofloxacin (Levaquin) 750 mg in 150 mls @ 100 mls/hr IV Q24H [facility] Last Admin: 05/29/20 14:43 Dose: 100 mls/hr Documented by: Insulin Glargine (Lantus) 40 unit SQ QDAY [facility] Last Admin: 05/29/20 10:20 Dose: 40 units Documented by: Insulin Human Lispro (Humalog) 0 unit SQ [facility]; Protocol Last Admin: 05/29/20 12:47 Dose: 2 units Documented by: Losartan Potassium (Cozaar) 100 mg PO QDAY [facility] Last Admin: 10/02/20 10:21 Dose: 100 mg Documented by: Metoclopramide HCl (Reglan) 5 mg IV Q6 [facility] Last Admin: 05/29/20 14:32 Dose: Not Given Documented by: Naproxen (Naprosyn) 250 mg PO BIDCC PRN; Protocol PRN Reason: Fever Last Admin: 05/28/20 23:13 Dose: 250 mg Documented by: Pantoprazole Sodium (Protonix) 40 mg PO HS [facility] Last Admin: 05/28/20 20:46 Dose: 40 mg Documented by: Potassium Chloride (Kdur) 20 meq PO QAC [facility] Last Admin: 05/29/20 10:20 Dose: 20 meq Documented by: Fluticasone/Salmeterol (Advair 100-50 Diskus) 1 puff INH BID [facility] Last Admin: 05/29/20 08:16 Dose: 1 puff Documented by: Sodium Chloride (Saline Flush) 10 ml IV Q8 [facility] Last Admin: 05/29/20 14:43 Dose: 10 ml Documented by: A/P Narrative A/P Narrative: A: *Acute hypoxic respiratory failure: 2/2 PNA -on 3L NC *Pneumonia, covid 19 positive: -CT chest - "Moderate patchy groundglass infiltrates throughout the lungs predominantly upper lobe involvement. -MRSA screen negative / Respiratory panel negative in the ER *1/4 bottle with GPC, likely contaminant: awaiting final BC identification * h/o CHF with dilated idiopathic CMP: * DM type 2: *HTN: home carvedilol 12.5 mg twice daily and losartan 100 mg daily., Amlodipine 10 mg daily * Elevation of liver enzymes: Improving * Hx of ascending aortic aneurysm: Tightly control blood pressure * Morbid obesity, BMI 47.3 *COPD(): P -Dexamethasone / Remdesivir -Levaquin -wean O2, IS/Acapella -Continue home Lasix 40 mg daily, Intake and output ,Daily weight -Continue home carvedilol 12.5 bid, losartan 100 daily; Amlodipine 10 daily on hold -Diabetic diet, Continue home Lantus, Metformin is on hold, Insulin sliding scale - -ppx: Pantoprazole and Lovenox 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
[2020-05-29] MEDS ORDERED: METOCLOPRAMIDE 10 MG/2 ML VIAL IV PRN (17:44)
[2020-05-29] MEDS: PANTOPRAZOLE 40 MG TABLET PO SCH (20:19)
[2020-05-29] MEDS: amLODIPine 5 MG TABLET PO SCH (20:20)
--- NOTE | 2020-05-29 20:44 | Internal Med Progress Note ---
SUBJECTIVE Subjective Patient information: Note initiated : 05/29/20 at 8:37 pm Service Date, if different from initiated Date: [] Patient: Steve Montero a 60 y/o M admitted on 05/28/20 for SOB, Weakness, General Malaise. Chief Complaint: [] Mr. Montero is a 60 year old M with a past medical history of CHF, type 2 diabetes, high blood pressure, and morbid obesity who presented to the ER due to worse gilberto shortness of breath, generalized weakness, diarrhea and nausea. Patient was diagnosed with positive COVID-19. Mr. Montero has been taking care of his . His COVID-19 test was positive on May 21, for which he was treated with azithromycin. He completed a course of azithromycin. he also complains of cough with a small amount of sputum. he noticed streaks of blood in his sputum at times. He also reported that he has pain from the area between shoulder blades. He feels more pain if he takes deep breath. In the ER, he was found to have desaturation, chest x-ray showed perihilar infiltrate. He was given Solu-Medrol 62.5 mg IV x 1 and 1 L normal saline. When I saw this patient in the ER, other than the symptoms mentioned above, he denied headache, dizziness, vomiting, abdominal pain, or chest pain. Denied recent travel. 05/28 Patient still complains of mild shortness of breath and sweating. Otherwise he denies fever, chills, nausea or vomiting. He is on 4 L AST normalized, ALT went down to 53. He is now on dexamethasone, remdesivir and Levaquin. 05/29 Pt is fine. feels better. Denies fever/chills. on 4L His blood culture was positive for GPC yesterday. I initially ordered vanc and echo. Spoke to Lab today - most likely resulted from contamination. No clinical evidence supports bacteremia. I discontinued vanco and echo. closely observe. Pt agreed with the plan. Review of Systems All systems: reviewed and no additional remarkable complaints except as stated Constitutional Vitals: Vital Signs Temp Pulse Resp BP Pulse Ox 97.1 F 76 20 151/82 90 05/29/20 16:40 05/29/20 16:40 05/29/20 16:40 05/29/20 16:40 05/29/20 17:01 Period Temp Pulse Resp BP Sys/Leong Pulse Ox Last 24 Hr 97.0 F-98.7 F 52-76 16-20 123-151/82-88 88-93 Intake and Output 05/29/20 05/29/20 05/29/20 05:59 13:59 21:59 Intake Total 400 990 510 Balance 400 990 510 Weight 140.432 kg Patient Weight 05/30/20 05:59 Weight 140.432 kg Intake & Output: Intake & Output 05/29/20 05/29/20 05/29/20 05:59 13:59 21:59 Intake Total 400 990 510 Balance 400 990 510 Weight 140.432 kg Intake: IV 250 150 Remdesivir 100 mg In Sodium 250 Chloride 0.9% 250 ml @ 250 mls/ hr IV Q24H [facility] Rx#:[id number] Oral 400 740 360 Other: Meal Breakfast Percent of Meal Consumed 100% Feeding Ability Independent # Voids 1 1 Additional findings Additional findings: General - No acute distress Eyes - PERRLA, EOM intact ENT no rhinorrhea, no noticeable or palpable swelling, no redness or rash around throat or on face Neck supple, no JVD, no thyromegaly Respiratory: Lungs -diminished breathing sounds, no wheezing or crackles. Cardiovascular - RRR no m/r/g, GI - Normal bowel sounds, no distended, soft. Extremeties - No edema, cyanosis or clubbing Hemo/lymphatic/immune no lymphadenopathy Neurological Alert and oriented x 3, no focal neurological deficits. Psychiatry flat affect OBJ DATA Labs CBC & Chem 7: 05/29/20 05:10 05/29/20 05:10 Labs: Abnormal Lab Results 05/29/20 05/29/20 05/28/20 05:10 05:10 05:05 MPV 11.0 H 10.7 H Lymph # (Auto) 1.43 L 1.18 L Chloride Glucose 184 H AST ALT 43 H Procalcitonin 05/28/20 05/27/20 05/27/20 05:05 14:08 14:08 MPV Lymph # (Auto) Chloride 94 L Glucose 288 H 178 H AST 41 H ALT 53 H 54 H Procalcitonin 0.11 H 05/27/20 14:08 MPV 10.5 H Lymph # (Auto) Chloride Glucose AST ALT Procalcitonin Meds: Medications Albuterol Sulfate (Ventolin) 2 puff INH Q4-6HP PRN PRN Reason: cough, shortness of breath, wh Amlodipine Besylate (Norvasc) 5 mg PO HS [facility] Last Admin: 05/29/20 20:20 Dose: 5 mg Documented by: Dexamethasone (Decadron) 6 mg PO DAILY [facility] Last Admin: 05/29/20 10:21 Dose: 6 mg Documented by: Dextrose (Dextrose 50%) 0 ml IV UD PRN PRN Reason: Hypoglycemia Diagnostic Test (Pha) (Accu-Chek) 1 each FS [facility] Last Admin: 05/29/20 20:18 Dose: 1 each Documented by: Docusate Sodium (Colace) 100 mg PO BID [facility] Last Admin: 05/29/20 20:19 Dose: 100 mg Documented by: Enoxaparin Sodium (Lovenox) 40 mg SQ DAILY [facility] Last Admin: 05/29/20 10:22 Dose: 40 mg Documented by: Fluticasone Propionate (Flonase) 1 spray NS QDAY [facility] Last Admin: 05/29/20 10:22 Dose: Not Given Documented by: Furosemide (Lasix) 40 mg PO QDAY [facility] Last Admin: 05/29/20 10:21 Dose: 40 mg Documented by: Glucose (Insta-Glucose) 15 gm PO PRN PRN PRN Reason: Hypoglycemia Guaifenesin (Robitussin Dm) 5 ml PO Q8HP PRN PRN Reason: Cough REMDESIVIR 100 mg/ Sodium (Chloride) 250 mls @ 250 mls/hr IV Q24H [facility] Stop: 05/31/20 11:59 Last Infusion: 05/29/20 12:33 Dose: Infused Documented by: Levofloxacin (Levaquin) 750 mg in 150 mls @ 100 mls/hr IV Q24H [facility] Last Infusion: 05/29/20 16:13 Dose: Infused Documented by: Insulin Glargine (Lantus) 40 unit SQ QDAY [facility] Last Admin: 05/29/20 10:20 Dose: 40 units Documented by: Insulin Human Lispro (Humalog) 0 unit SQ [facility]; Protocol Last Admin: 05/29/20 20:19 Dose: 3 units Documented by: Losartan Potassium (Cozaar) 100 mg PO QDAY [facility] Last Admin: 05/29/20 10:21 Dose: 100 mg Documented by: Metoclopramide HCl (Reglan) 5 mg IV Q6HP PRN PRN Reason: Nausea Naproxen (Naprosyn) 250 mg PO BIDCC PRN; Protocol PRN Reason: Fever Last Admin: 05/28/20 23:13 Dose: 250 mg Documented by: Pantoprazole Sodium (Protonix) 40 mg PO [facility] Last Admin: 05/29/20 20:19 Dose: 40 mg Documented by: Potassium Chloride (Kdur) 20 meq PO QAC [facility] Last Admin: 05/29/20 10:20 Dose: 20 meq Documented by: Fluticasone/Salmeterol (Advair 100-50 Diskus) 1 puff INH BID [facility] Last Admin: 05/29/20 20:18 Dose: 1 puff Documented by: Sodium Chloride (Saline Flush) 10 ml IV Q8 [facility] Last Admin: 05/29/20 20:20 Dose: 10 ml Documented by: A/P Narrative A/P Narrative: 1. Acute hypoxic respiratory failure Pulse ox Oxygen therapy to keep saturation greater than 92% 2. Pneumonia, covid 19 positive small amount of sputum and hemoptysis Chest x-ray showed Vague infiltrates developing in the perihilar regions. CT chest - "Moderate patchy groundglass infiltrates throughout the lungs predominantly upper lobe involvement. This could represent infection including Covid pneumonia or less likely aspiration." MRSA screen negative Respiratory panel negative in the ER Completed a course of azithromycin recently Levaquin Dexamethasone Remdesivir 3. CHF with dilated idiopathic cardiomyopathy Patient fluid status seems to be fine BNP 50 Continue home Lasix 40 mg daily Intake and output Daily weight Check magnesium 4. DM type 2 Diabetic diet Continue home Lantus Metformin is on hold Insulin sliding scale 5. HTN Not high Continue home carvedilol 12.5 mg twice daily and losartan 100 mg daily. Amlodipine 10 mg daily is on hold Monitor blood pressure 6. Elevation of liver enzymes Improving Repeat liver enzyme in the morning 7. Hx of ascending aortic aneurysm Tightly control blood pressure 8. Morbid obesity, BMI 47.3 Follow with PCP 9. Bacteremia? His blood culture was positive for GPC yesterday. Spoke to Lab today - most likely resulted from contamination. No clinical evidence supports bacteremia. closely observe. Pt agreed with the plan. 10. 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
--- NOTE | 2020-05-30 07:34 | Internal Med Progress Note ---
SUBJECTIVE Subjective Patient information: Note initiated : 05/30/20 at 7:31 am Service Date, if different from initiated Date: [] Patient: Steve Montero a 60 y/o M admitted on 05/28/20 for SOB, Weakness, General Malaise. Chief Complaint: [] Interval history: Mr. Montero is a 60 year old M with a past medical history of CHF, type 2 diabetes, high blood pressure, and morbid obesity who presented to the ER due to worsening shortness of breath, generalized weakness, diarrhea and nausea. Patient was diagnosed with positive COVID-19. Mr. Montero has been taking care of his . His COVID-19 test was positive on May 21, for which he was treated with azithromycin. He completed a course of azithromycin. he also complains of cough with a small amount of sputum. he noticed streaks of blood in his sputum at times. He also reported that he has pain from the area between shoulder blades. He feels more pain if he takes deep breath. In the ER, he was found to have desaturation, chest x-ray showed perihilar infiltrate. He was given Solu-Medrol 62.5 mg IV x 1 and 1 L normal saline. When I saw this patient in the ER, other than the symptoms mentioned above, he denied headache, dizziness, vomiting, abdominal pain, or chest pain. Denied r ecent travel. 05/28 Patient still complains of mild shortness of breath and sweating. Otherwise he denies fever, chills, nausea or vomiting. He is on 4 L AST normalized, ALT went down to 53. He is now on dexamethasone, remdesivir and Levaquin. *Blood culture - GPC, COCCI IN CLUSTERS IN ONE BOTTLE OF SET Repeat blood culture Echo Although there is a possibility that it could be due to contamination, I would like to add vanco. Monitor 05/29 Pt is fine. feels better. Denies fever/chills. on 4L His blood culture was positive for GPC yesterday. I initially ordered vanc and echo. Spoke to Lab today - most likely resulted from contamination. No clinical evidence supports bacteremia. I discontinued vanco and echo. closely observe. Pt agreed with the plan. 05/30 Patient was on 2.5 L yesterday and then while he slept he desatted. Patient states he has sinus congestion and is clogged in his nasal passages. Also has been worked up for obstructive sleep apnea outpatient. Coughing and shortness of breath improving. Review of Systems: denies headache/fever/chills/nausea/vomiting/chest or abdominal paindiarrhea. Otherwise see above. Constitutional Vitals: Vital Signs Temp Pulse Resp BP Pulse Ox 98.1 F 63 20 134/82 92 05/30/20 03:15 05/30/20 03:15 05/30/20 03:15 05/30/20 03:15 05/30/20 03:15 Period Temp Pulse Resp BP Sys/Leong Pulse Ox Last 24 Hr 97.1 F-98.1 F 56-76 18-20 123-151/77-94 88-93 Intake and Output 05/29/20 05/30/20 05/30/20 21:59 05:59 13:59 Intake Total 510 150 Balance 510 150 Weight 139.797 kg Intake & Output: Intake & Output 05/29/20 05/30/20 05/30/20 21:59 05:59 13:59 Intake Total 510 150 Balance 510 150 Weight 139.797 kg Intake: IV 150 Oral 360 150 Other: # Voids 1 1 Exam: General: Alert, Awake, No acute Distress Eyes/N/T: EOMI, Head/Neck: neck supple, CV: RRR, No murmurs, normal s1/s2 Pulm: Diminished b/l, mild rales left base, no wheezing/rales Abd: soft, nontender, +BS x4 Ext: no clubbing/cyanosis, b/l LE trace-1+ edema Neuro: Alert, no focal deficits, moves all extremities, Skin: warm/dry OBJ DATA Labs CBC & Chem 7: 05/29/20 05:10 05/29/20 05:10 Labs: Abnormal Lab Results 05/29/20 05/29/20 05/28/20 05:10 05:10 05:05 MPV 11.0 H 10.7 H Lymph # (Auto) 1.43 L 1.18 L Chloride Glucose 184 H AST ALT 43 H Procalcitonin 05/28/20 05/27/20 05/27/20 05:05 14:08 14:08 MPV Lymph # (Auto) Chloride 94 L Glucose 288 H 178 H AST 41 H ALT 53 H 54 H Procalcitonin 0.11 H 09/30/20 14:08 MPV 10.5 H Lymph # (Auto) Chloride Glucose AST ALT Procalcitonin Meds: Medications Albuterol Sulfate (Ventolin) 2 puff INH Q4-6HP PRN PRN Reason: cough, shortness of breath, wh Amlodipine Besylate (Norvasc) 5 mg PO HS [facility] Last Admin: 05/29/20 20:20 Dose: 5 mg Documented by: Dexamethasone (Decadron) 6 mg PO DAILY [facility] Last Admin: 05/29/20 10:21 Dose: 6 mg Documented by: Dextrose (Dextrose 50%) 0 ml IV UD PRN PRN Reason: Hypoglycemia Diagnostic Test (Pha) (Accu-Chek) 1 each FS [facility] Last Admin: 05/29/20 20:18 Dose: 1 each Documented by: Docusate Sodium (Colace) 100 mg PO BID [facility] Last Admin: 05/29/20 20:19 Dose: 100 mg Documented by: Enoxaparin Sodium (Lovenox) 40 mg SQ DAILY [facility] Last Admin: 05/29/20 10:22 Dose: 40 mg Documented by: Fluticasone Propionate (Flonase) 1 spray NS QDAY [facility] Last Admin: 05/29/20 10:22 Dose: Not Given Documented by: Furosemide (Lasix) 40 mg PO QDAY [facility] Last Admin: 05/29/20 10:21 Dose: 40 mg Documented by: Glucose (Insta-Glucose) 15 gm PO PRN PRN PRN Reason: Hypoglycemia Guaifenesin (Robitussin Dm) 5 ml PO Q8HP PRN PRN Reason: Cough REMDESIVIR 100 mg/ Sodium (Chloride) 250 mls @ 250 mls/hr IV Q24H [facility] Stop: 05/31/20 11:59 Last Infusion: 05/29/20 12:33 Dose: Infused Documented by: Levofloxacin (Levaquin) 750 mg in 150 mls @ 100 mls/hr IV Q24H [facility] Last Infusion: 05/29/20 16:13 Dose: Infused Documented by: Insulin Glargine (Lantus) 40 unit SQ QDAY [facility] Last Admin: 05/29/20 10:20 Dose: 40 units Documented by: Insulin Human Lispro (Humalog) 0 unit SQ [facility]; Protocol Last Admin: 05/29/20 20:19 Dose: 3 units Documented by: Losartan Potassium (Cozaar) 100 mg PO QDAY [facility] Last Admin: 05/29/20 10:21 Dose: 100 mg Documented by: Metoclopramide HCl (Reglan) 5 mg IV Q6HP PRN PRN Reason: Nausea Naproxen (Naprosyn) 250 mg PO BIDCC PRN; Protocol PRN Reason: Fever Last Admin: 05/28/20 23:13 Dose: 250 mg Documented by: Pantoprazole Sodium (Protonix) 40 mg PO HS [facility] Last Admin: 05/29/20 20:19 Dose: 40 mg Documented by: Potassium Chloride (Kdur) 20 meq PO QAC [facility] Last Admin: 05/29/20 10:20 Dose: 20 meq Documented by: Fluticasone/Salmeterol (Advair 100-50 Diskus) 1 puff INH BID [facility] Last Admin: 05/29/20 20:18 Dose: 1 puff Documented by: Sodium Chloride (Saline Flush) 10 ml IV Q8 [facility] Last Admin: 05/29/20 20:20 Dose: 10 ml Documented by: A/P Narrative A/P Narrative: A: *Acute hypoxic respiratory failure: 2/2 PNA -on 2.5L NC *Pneumonia, COVID-19 (+): -CT chest - "Moderate patchy groundglass infiltrates throughout the lungs predominantly upper lobe involvement. -MRSA screen negative / Respiratory panel negative in the ER *COPD(not on home O2): *Likely GRAYSON: *1/4 bottle with GPC, likely contaminant: awaiting final BC identification * h/o CHF with dilated idiopathic CMP: * DM type 2: *HTN: home carvedilol 12.5 mg twice daily and losartan 100 mg daily., Amlodipine 10 mg daily * Elevation of liver enzymes: Improving * Hx of ascending aortic aneurysm: Tightly control blood pressure * Morbid obesity, BMI 47.3 P -Dexamethasone / Remdesivir -Levaquin -wean O2, IS/Acapella -eval for home O2 in morning -Continue home Lasix 40 mg daily, Intake and output ,Daily weight -Continue home carvedilol 12.5 bid, losartan 100 daily; Amlodipine 10 daily on hold -Diabetic diet, Continue home Lantus(increase to 45), Metformin is on hold, Insulin sliding scale -f/u with Pulm for sleep study -ppx: Pantoprazole and Lovenox CODE STATUS: Treating Engineer 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
[2020-05-30] MEDS: DEXAMETHASONE 4 MG TABLET PO SCH (08:40)
[2020-05-30] MEDS: LOSARTAN 50 MG TABLET PO SCH (08:41)
[2020-05-30] MEDS: FUROSEMIDE 40 MG TABLET PO SCH (08:42)
[2020-05-30] MEDS: POTASSIUM CHLORIDE 20 MEQ TABLET PO SCH (08:42)
[2020-05-30] MEDS: DOCUSATE SODIUM 100 MG CAPSULE PO SCH ×2 (08:43→20:42)
[2020-05-30] MEDS: INSULIN LISPRO 1 UNIT/0.01 ML UNIT SQ SCH ×4 (08:44→20:40)
[2020-05-30] MEDS: INSULIN GLARGINE, HUMAN 1 UNIT/0.01 ML SQ SCH (08:46)
[2020-05-30] MEDS: FLUTICASONE/SALMETEROL 50/100 INHALER #14 INH SCH ×2 (08:53→20:41)
[2020-05-30] MEDS ORDERED: FUROSEMIDE 40 MG/4 ML VIAL IV ONE (08:56)
[2020-05-30] MEDS ORDERED: SODIUM CHLORIDE NASAL 1 SPRAY BOTTLE NAS PRN (08:57)
[2020-05-30] MEDS ORDERED: LORATADINE 10 MG TABLET PO PRN (08:57)
[2020-05-30] MEDS ORDERED: LORATADINE 10 MG TABLET PO ONE (08:57)
[2020-05-30] MEDS: LEVOFLOXACIN 750 MG/150 ML BAG IV SCH (09:02)
[2020-05-30] MEDS: FLUTICASONE PROPIONATE SPRAY.NAS NS SCH (09:21)
[2020-05-30] MEDS: 0.9 % SODIUM CHLORIDE 10 ML SYRINGE IV SCH ×3 (09:21→20:42)
[2020-05-30] MEDS: ENOXAPARIN 40 MG/0.4 ML SYRINGE SQ SCH (09:22)
--- NOTE | 2020-05-30 10:54 | Discharge Summary ---
Discharge Provider Provider Patient information: Note initiated : 05/30/20 at 10:53 am Service Date, if different from initiated Date: [] Patient: Steve Montero 60 y/o M admitted on 05/28/20 for SOB, Weakness, General Malaise. Chief Complaint: [] Date of admission: 05/28/20 10:44 Discharge date: 06/01/20 Primary care physician: Narinder Peralta DO Consults: 05/28/20 07:19 Consult to Physician [CONS] Routine Comment: Consulting Provider: Geraldine Vásquez Reason For Exam: Physician to Consult Discharge Meds Discharge Medications Home Medications losartan 100 mg tablet 100 mg PO QDAY 10/27/16 [History Confirmed 05/27/20 Last Taken 05/27/20 08:00] fluticasone propionate 50 mcg/actuation nasal spray,suspension 1 spray INTRANASAL QDAY #16 g 02/27/20 [Rx Confirmed 05/27/20 Last Taken Unknown] metformin 500 mg tablet 1,000 mg PO BID #180 tab 02/27/20 [Rx Confirmed 05/27/20 Last Taken 05/27/20 08:00] amlodipine 10 mg tablet 10 mg PO HS #90 tab 03/04/20 [Rx Confirmed 05/27/20 Last Taken 05/26/20] potassium chloride 20 mEq tablet,extended release 20 meq PO QDAY #90 tab 03/05/20 [Rx Confirmed 05/27/20 Last Taken 05/27/20 08:00] blood sugar diagnostic #100 each 03/30/20 [Rx Confirmed 05/21/20 Last Taken Unknown] furosemide 40 mg tablet 40 mg PO QDAY #90 tab 04/06/20 [Rx Confirmed 05/27/20 Last Taken 05/27/20 08:00] insulin glargine 100 unit/mL (3 mL) subcutaneous pen 40 unit SUB-Q QDAY #15 ml 04/29/20 [Rx Confirmed 05/27/20 Last Taken 05/26/20] albuterol sulfate 90 mcg/actuation aerosol inhaler 2 puff INHALATION .q4-6h PRN #8.5 g 05/21/20 [Rx Confirmed 05/27/20 Last Taken Unknown] BD Ultra-Fine Aliya Pen Needle 32 gauge x 5/32" See Rx Instructions .ROUTE .COMPLEX #90 each NS 05/25/20 [Rx Confirmed 05/27/20 Last Taken Unknown] fluticasone 100 mcg-salmeterol 50 mcg/dose blistr powdr for inhalation 1 inh INH ALATION BID #3 device 05/25/20 [Rx Confirmed 05/27/20 Last Taken Unknown] blood sugar diagnostic See Rx Instructions .ROUTE .COMPLEX #180 strip 05/26/20 [Rx Confirmed 05/27/20 Last Taken Unknown] lancets #180 each 05/26/20 [Rx Last Taken Unknown] carvedilol [Coreg] 3.125 mg PO Q12H #60 tab 06/01/20 [Rx Last Taken Unknown] levofloxacin 750 mg PO QDAY #1 tab 06/01/20 [Rx Last Taken Unknown] COURSE Hospital Course Hospital course: Interval history: Mr. Montero is a 60 year old M with a past medical history of CHF, type 2 diabetes, high blood pressure, and morbid obesity who presented to the ER due to worsening shortness of breath, generalized weakness, diarrhea and nausea. Patient was diagnosed with positive COVID- 19. Mr. Montero has been taking care of his . His COVID-19 test was positive on May 21, for which he was treated with azithromycin. He completed a course of azithromycin. he also complains of cough with a small amount of sputum. he noticed streaks of blood in his sputum at times. He also reported that he has pain from the area between shoulder blades. He feels more pain if he takes deep breath. In the ER, he was found to have desaturation, chest x-ray showed perihilar infiltrate. He was given Solu-Medrol 62.5 mg IV x 1 and 1 L normal saline. When I saw this patient in the ER, other than the symptoms mentioned above, he denied headache, dizziness, vomiting, abdominal pain, or chest pain. Denied recent travel. 05/28 Patient still complains of mild shortness of breath and sweating. Otherwise he denies fever, chills, nausea or vomiting. He is on 4 L AST normalized, ALT went down to 53. He is now on dexamethasone, remdesivir and Levaquin. *Blood culture - GPC, COCCI IN CLUSTERS IN ONE BOTTLE OF SET Repeat blood culture Echo Although there is a possibility that it could be due to contamination, I would like to add vanco. Monitor 05/29 Pt is fine. feels better. Denies fever/chills. on 4L His blood culture was positive for GPC yesterday. I initially ordered vanc and echo. Spoke to Lab today - most likely resulted from contamination. No clinical evidence supports bacteremia. I discontinued vanco and echo. closely observe. Pt agreed with the plan. 05/30 Patient was on 2.5 L yesterday and then while he slept he desatted. Patient states he has sinus congestion and is clogged in his nasal passages. Also has been worked up for obstructive sleep apnea outpatient. Coughing and shortness of breath improving. 05/31 Slept well last night. Still on oxygen 2 and half but with good sats so we decreased him to 1.5, mild cough and shortness of breath. 06/01 Patient doing well and is on room air. Patient concerned about his heart rate dropping into the high 30s while he sleeps. Says his heart rate typically runs 40s and 50s at home and I explained to him that it was very likely that while he was sleeping at home his heart rate dropped in the high 30s as well. He has been asymptomatic. We will reduce his Coreg A: *Acute hypoxic respiratory failure: 2/2 PNA *Pneumonia, COVID-19 (+): *COPD(not on home O2): *Likely GRAYSON: */ bottle with GPC, likely contaminant: * h/o CHF with dilated idiopathic CMP: * DM type 2: *HTN: * Morbid obesity, BMI 47.3 *Bradycardia: asymptomatic, reduce coreg and f/u with cardiology/PCP Discharge diagnosis: COVID pneumonia toxic respiratory failure likely obstructive sleep apnea Secondary discharge diagnosis: COPD history of heart failure diabetes hypertension obesity Time Spent with Patient Time attestation: Total time spent providing and/or coordinating discharge se rvices: Time spent: Greater than 30 minutes EXAM Constitutional Vitals: Temp Pulse Resp BP Pulse Ox 97.1 F 51 L 20 149/81 93 05/30/20 08:00 05/30/20 08:00 05/30/20 08:00 05/30/20 08:00 05/30/20 08:45 Discharge Data Data Completed and Pending Labs on day of discharge: Labs from last 24 hours 05/30/20 07:52 Vancomycin Trough < 4.0 Preliminary micro results at discharge 05/28/20 22:35 Sputum Culture - Preliminary Sputum - Expectorated 05/28/20 19:06 Blood Culture - Preliminary Blood 05/28/20 19:00 Blood Culture - Preliminary Blood 05/27/20 18:55 Blood Culture - Preliminary Blood 05/27/20 19:03 Blood Culture - Preliminary Blood Gram positive cocci Discharge Plan Patient/Caregiver Discharge Instructions Activity: increase activity as tolerated Diet: Consistent Carbohydrate Activity Restrictions/Additional Instructions: Monitor heart rate and blood pressure, keep a log and bring to your PCP/weatherization installer. Follow-up with your weatherization installer as scheduled tomorrow. Prescriptions: New carvedilol [Coreg] 3.125 mg tablet 3.125 mg PO Q12H Qty: 60 RF: 0 levofloxacin 750 mg tablet 750 mg PO QDAY Qty: 1 RF: 0 Continued amlodipine 10 mg tablet 10 mg PO HS Qty: 90 RF: 1 potassium chloride 20 mEq tablet extended release 20 meq PO QDAY Qty: 90 RF: 1 (DME) Blood Glucose Test Strip See Rx Instructions .ROUTE .MEDSUPPLY Qty: 100 RF: 2 furosemide 40 mg tablet 40 mg PO QDAY Qty: 90 RF: 1 Lantus Solostar U-100 Insulin 100 unit/mL (3 mL) insulin pen 40 unit SUB-Q QDAY Qty: 15 RF: 3 albuterol sulfate [ProAir HFA] 90 mcg/actuation HFA aerosol inhaler 2 puff INHALATION .q4-6h PRN (Reason: cough, shortness of breath, wheezing) Qty: 8.5 RF: 0 pen needle, diabetic [BD Ultra-Fine Aliya Pen Needle] 32 gauge x 5/32" needle See Rx Instructions .ROUTE .COMPLEX Qty: 90 RF: 3 fluticasone propion-salmeterol [Advair Diskus] 100-50 mcg/dose blister with device 1 inh INHALATION BID Qty: 3 RF: 3 (DME) lancets [OneTouch UltraSoft Lancets] Misc See Dose Instructions .ROUTE .MEDSUPPLY Qty: 180 RF: 3 OneTouch Ultra Blue Test Strip Strip See Rx Instructions .ROUTE .COMPLEX Qty: 180 RF: 3 fluticasone propion-salmeterol [Advair Diskus] 250-50 mcg/dose blister with device 1 ea inhalation DAILY RF: 0 metformin 500 mg tablet 1,000 mg PO BID Qty: 180 RF: 3 fluticasone propionate [Flonase Allergy Relief] 50 mcg/actuation spray,suspension 1 spray INTRANASAL QDAY Qty: 16 RF: 0 losartan 100 mg tablet 100 mg PO QDAY RF: 0 Discontinued carvedilol 25 mg tablet 12.5 mg PO BID Qty: 90 RF: 1 azithromycin 250 mg tablet See Rx Instructions PO Q24H Qty: 6 RF: 0 Follow Up Plan Follow up with: Narinder Peralta DO [Primary Care Provider] - Patient Disposition: Home, Self-Care Prognosis: Fair Discharge Orders: Discharge Order (Routine); Ordered 06/01/20 Ordered By: Jose Pollack [facility] VTE Deep Vein Thrombosis/Pulmonary Embolism Present on Admission: No
[2020-05-30] MEDS: REMDESIVIR 100 MG in 0.9 % SODIUM CHLORIDE 250 ML IV SCH (11:05)
[2020-05-30] MEDS: LACTOBACILLUS 1 CAPSULE PO SCH ×2 (12:12→20:41)
--- NOTE | 2020-05-30 12:50 | XRay Report ---
CLINICAL INFORMATION: f/u pulm infiltrates COMPARISON: 05/27/2020 FINDINGS: Mild cardiomegaly is unchanged. Mediastinum is unremarkable. Pulmonary liver normal on this exam. Small patchy infiltrate developing in the right midlung - no effusions. IMPRESSION: Small patchy right midlung infiltrate developing. Mild stable cardiomegaly. No evidence of CHF Interpreted and Authenticated by: Narinder Mora 05/30/20
[2020-05-30] MEDS: PANTOPRAZOLE 40 MG TABLET PO SCH (20:41)
[2020-05-30] MEDS: amLODIPine 5 MG TABLET PO SCH (20:42)
[2020-05-31] MEDS ORDERED: POLYETHYLENE GLYCOL 3350 17 GM PACKET PO ONE (07:41)
[2020-05-31] MEDS ORDERED: POLYETHYLENE GLYCOL 3350 17 GM PACKET PO PRN (07:41)
--- NOTE | 2020-05-31 07:44 | Internal Med Progress Note ---
SUBJECTIVE Subjective Patient information: Note initiated : 05/31/20 at 7:40 am Service Date, if different from initiated Date: [] Patient: Steve Montero a 60 y/o M admitted on 05/28/20 for SOB, Weakness, General Malaise. Chief Complaint: [] Interval history: Mr. Montero is a 60 year old M with a past medical history of CHF, type 2 diabetes, high blood pressure, and morbid obesity who presented to the ER due to worsening shortness of breath, generalized weakness, diarrhea and nausea. Patient was diagnosed with positive COVID-19. Mr. Montero has been taking care of his . His COVID-19 test was positive on May 21, for which he was treated with azithromycin. He completed a course of azithromycin. he also complains of cough with a small amount of sputum. he noticed streaks of blood in his sputum at times. He also reported that he has pain from the area between shoulder blades. He feels more pain if he takes deep breath. In the ER, he was found to have desaturation, chest x-ray showed perihilar infiltrate. He was given Solu-Medrol 62.5 mg IV x 1 and 1 L normal saline. When I saw this patient in the ER, other than the symptoms mentioned above, he denied headache, dizziness, vomiting, abdominal pain, or chest pain. Denied r ecent travel. 05/28 Patient still complains of mild shortness of breath and sweating. Otherwise he denies fever, chills, nausea or vomiting. He is on 4 L AST normalized, ALT went down to 53. He is now on dexamethasone, remdesivir and Levaquin. *Blood culture - GPC, COCCI IN CLUSTERS IN ONE BOTTLE OF SET Repeat blood culture Echo Although there is a possibility that it could be due to contamination, I would like to add vanco. Monitor 05/29 Pt is fine. feels better. Denies fever/chills. on 4L His blood culture was positive for GPC yesterday. I initially ordered vanc and echo. Spoke to Lab today - most likely resulted from contamination. No clinical evidence supports bacteremia. I discontinued vanco and echo. closely observe. Pt agreed with the plan. 05/30 Patient was on 2.5 L yesterday and then while he slept he desatted. Patient states he has sinus congestion and is clogged in his nasal passages. Also has been worked up for obstructive sleep apnea outpatient. Coughing and shortness of breath improving. 05/31 Slept well last night. Still on oxygen 2 and half but with good sats so we decreased him to 1.5, mild cough and shortness of breath. Review of Systems: denies headache/fever/chills/nausea/vomiting/chest or abdominal paindiarrhea. Otherwise see above. Constitutional Vitals: Vital Signs Temp Pulse Resp BP Pulse Ox 98.9 F 51 L 16 126/76 90 05/31/20 04:00 05/31/20 04:00 05/31/20 04:00 05/31/20 04:00 05/31/20 04:00 Period Temp Pulse Resp BP Sys/Leong Pulse Ox Last 24 Hr 97.1 F-98.9 F 51-62 - 126-149/76-87 89-95 Intake and Output 05/30/20 05/31/20 05/31/20 21:59 05:59 13:59 Intake Total 800 300 Balance 800 300 Weight 138.119 kg Intake & Output: Intake & Output 05/30/20 05/31/20 05/31/20 21:59 05:59 13:59 Intake Total 800 300 Balance 800 300 Weight 138.119 kg Intake: Oral 800 300 Other: Meal Dinner Percent of Meal Consumed 100% Feeding Ability Independent Stool Size Small Stool Color Brown Stool Consistency Dry and Hard # Voids 1 1 # Bowel Movements 1 Exam: General: Alert, Awake, No acute Distress, obese Eyes/N/T: EOMI, Head/Neck: neck supple, CV: demarco but regular, No murmur Pulm: Diminished b/l, mild rhonghi on right, no wheezing Abd: soft, nontender, +BS x4 Ext: no clubbing/cyanosis, b/l LE trace edema Neuro: Alert, no focal deficits, moves all extremities, Skin: warm/dry OBJ DATA Labs CBC & Chem 7: 05/29/20 05:10 05/29/20 05:10 Labs: Abnormal Lab Results 05/29/20 05/29/20 05:10 05:10 MPV 11.0 H Lymph # (Auto) 1.43 L Glucose 184 H ALT 43 H Meds: Medications Albuterol Sulfate (Ventolin) 2 puff INH Q4-6HP PRN PRN Reason: cough, shortness of breath, wh Amlodipine Besylate (Norvasc) 5 mg PO HS [facility] Last Admin: 05/30/20 20:42 Dose: 5 mg Documented by: Dexamethasone (Decadron) 6 mg PO DAILY [facility] Last Admin: 05/30/20 08:40 Dose: 6 mg Documented by: Dextrose (Dextrose 50%) 0 ml IV UD PRN PRN Reason: Hypoglycemia Diagnostic Test (Pha) (Accu-Chek) [address] [facility] Last Admin: 05/30/20 20:41 Dose: 1 each Documented by: Docusate Sodium (Colace) 100 mg PO BID [facility] Last Admin: 05/30/20 20:42 Dose: 100 mg Documented by: Enoxaparin Sodium (Lovenox) 40 mg SQ DAILY [facility] Last Admin: 05/30/20 09:22 Dose: 40 mg Documented by: Fluticasone Propionate (Flonase) 1 spray NS QDAY [facility] Last Admin: 05/30/20 09:21 Dose: Not Given Documented by: Furosemide (Lasix) 40 mg PO QDAY [facility] Glucose (Insta-Glucose) 15 gm PO PRN PRN PRN Reason: Hypoglycemia Guaifenesin (Robitussin Dm) 5 ml PO Q8HP PRN PRN Reason: Cough REMDESIVIR 100 mg/ Sodium (Chloride) 250 mls @ 250 mls/hr IV Q24H [facility] Stop: 05/31/20 11:59 Last Infusion: 05/30/20 12:11 Dose: Infused Documented by: Levofloxacin (Levaquin) 750 mg in 150 mls @ 100 mls/hr IV Q24H [facility] Last Infusion: 05/30/20 10:35 Dose: Infused Documented by: Insulin Glargine (Lantus) 45 unit SQ QDAY [facility] Last Admin: 05/30/20 08:46 Dose: 45 units Documented by: Insulin Human Lispro (Humalog) 0 unit SQ [facility]; Protocol Last Admin: 05/30/20 20:40 Dose: 8 units Documented by: Lactobacillus Rhamnosus (Culturelle) 1 cap PO BID [facility] Last Admin: 05/30/20 20:41 Dose: 1 cap Documented by: Loratadine (Claritin) 10 mg PO DAILYP PRN PRN Reason: Allergy Symptoms Losartan Potassium (Cozaar) 100 mg PO QDAY [facility] Last Admin: 05/30/20 08:41 Dose: 100 mg Documented by: Metoclopramide HCl (Reglan) 5 mg IV Q6HP PRN PRN Reason: Nausea Naproxen (Naprosyn) 250 mg PO BIDCC PRN; Protocol PRN Reason: Fever Last Admin: 05/28/20 23:13 Dose: 250 mg Documented by: Pantoprazole Sodium (Protonix) 40 mg PO [facility] Last Admin: 05/30/20 20:41 Dose: 40 mg Documented by: Potassium Chloride (Kdur) [facility] Last Admin: 05/30/20 08:42 Dose: 20 meq Documented by: Fluticasone/Salmeterol (Advair 100-50 Diskus) 1 puff INH BID [facility] Last Admin: 05/30/20 20:41 Dose: 1 puff Documented by: Sodium Chloride (Saline Flush) 10 ml IV Q8 [facility] Last Admin: 05/30/20 20:42 Dose: 10 ml Documented by: Sodium Chloride ([place] Nasal) 2 spray DESTINI Q4HP PRN PRN Reason: Congestion A/P Narrative A/P Narrative: A: *Acute hypoxic respiratory failure: 2/2 PNA -on 1.5L NC *Pneumonia, COVID-19 (+): -CT chest - "Moderate patchy groundglass infiltrates throughout the lungs predominantly upper lobe involvement. -MRSA screen negative / Respiratory panel negative in the ER / SC neg *COPD(not on home O2): *Likely GRAYSON: *1/4 bottle with GPC, likely contaminant: awaiting final BC identification * h/o CHF with dilated idiopathic CMP: * DM type 2: * HTN: home carvedilol 12.5 mg twice daily and losartan 100 mg daily and Aml odipine 10 mg daily * Elevation of liver enzymes: Improving * Hx of ascending aortic aneurysm: Tightly control blood pressure * Morbid obesity, BMI 47.3 P -Dexamethasone / Remdesivir -Levaquin -wean O2, IS/Acapella -eval for home O2 in morning -Continue home Lasix 40 mg daily, Intake and output ,Daily weight -Continue home carvedilol at lower dose for bradycardia, losartan 100 daily; Amlodipine 10 on hold d/t low-normal BP on admit -Diabetic diet, Continue home Lantus(increase to 45), Metformin is on hold, Insulin sliding scale -f/u with Pulm for sleep study -ppx: Pantoprazole and Lovenox CODE STATUS: [employer] Design Engineer 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
[2020-05-31] MEDS: INSULIN GLARGINE, HUMAN 1 UNIT/0.01 ML SQ SCH ×2 (09:10→09:15)
[2020-05-31] MEDS: INSULIN LISPRO 1 UNIT/0.01 ML UNIT SQ SCH ×5 (09:13→20:12)
[2020-05-31] MEDS: ENOXAPARIN 40 MG/0.4 ML SYRINGE SQ SCH (09:15)
[2020-05-31] MEDS: DOCUSATE SODIUM 100 MG CAPSULE PO SCH ×2 (09:16→20:15)
[2020-05-31] MEDS: LOSARTAN 50 MG TABLET PO SCH (09:16)
[2020-05-31] MEDS: FUROSEMIDE 40 MG TABLET PO SCH (09:17)
[2020-05-31] MEDS: LACTOBACILLUS 1 CAPSULE PO SCH ×2 (09:17→20:14)
[2020-05-31] MEDS: POTASSIUM CHLORIDE 20 MEQ TABLET PO SCH (09:17)
[2020-05-31] MEDS: DEXAMETHASONE 4 MG TABLET PO SCH (09:18)
[2020-05-31] MEDS: FLUTICASONE PROPIONATE SPRAY.NAS NS SCH (09:21)
[2020-05-31] MEDS: 0.9 % SODIUM CHLORIDE 10 ML SYRINGE IV SCH ×3 (09:22→20:13)
[2020-05-31] MEDS: FLUTICASONE/SALMETEROL 50/100 INHALER #14 INH SCH ×2 (09:26→20:13)
[2020-05-31] MEDS: LEVOFLOXACIN 750 MG/150 ML BAG IV SCH (12:09)
[2020-05-31] MEDS: REMDESIVIR 100 MG in 0.9 % SODIUM CHLORIDE 250 ML IV SCH (13:36)
[2020-05-31] MEDS: CARVEDILOL 6.25 MG TABLET PO SCH (17:46)
[2020-05-31] MEDS: PANTOPRAZOLE 40 MG TABLET PO SCH (20:14)
[2020-05-31] MEDS ORDERED: MELATONIN 3 MG TABLET PO SCH (21:00)
[2020-06-01] MEDS: INSULIN LISPRO 1 UNIT/0.01 ML UNIT SQ SCH ×3 (03:55→08:34)
[2020-06-01] MEDS: POTASSIUM CHLORIDE 20 MEQ TABLET PO SCH (08:21)
[2020-06-01] MEDS: DEXAMETHASONE 4 MG TABLET PO SCH (08:22)
[2020-06-01] MEDS: LACTOBACILLUS 1 CAPSULE PO SCH (08:23)
[2020-06-01] MEDS: LOSARTAN 50 MG TABLET PO SCH (08:23)
[2020-06-01] MEDS: FUROSEMIDE 40 MG TABLET PO SCH (08:24)
[2020-06-01] MEDS: CARVEDILOL 6.25 MG TABLET PO SCH (08:25)
[2020-06-01] MEDS: ENOXAPARIN 40 MG/0.4 ML SYRINGE SQ SCH (08:26)
[2020-06-01] MEDS: DOCUSATE SODIUM 100 MG CAPSULE PO SCH (08:29)
[2020-06-01] MEDS: LEVOFLOXACIN 750 MG/150 ML BAG IV SCH (08:32)
[2020-06-01] MEDS: INSULIN GLARGINE, HUMAN 1 UNIT/0.01 ML SQ SCH (08:35)
[2020-06-01] MEDS: FLUTICASONE PROPIONATE SPRAY.NAS NS SCH (08:36)
[2020-06-01] MEDS: 0.9 % SODIUM CHLORIDE 10 ML SYRINGE IV SCH (08:36)
[2020-06-01] MEDS: FLUTICASONE/SALMETEROL 50/100 INHALER #14 INH SCH (08:37)
== END 2020-06-01 12:20 | disposition home or self-care (01) | DRG 177 ==
LOC: MEDSUR 13:21 → ED 13:21 → MEDSUR 18:45
PROVIDERS: ADMIT Internal Medicine; ATTEND Internal Medicine